=== PATIENT | male | born 2000 | race African-American/Black ===

== ENCOUNTER 2018-07-18 13:53 | Emergency (ER) | payer MEDICAID ==
[~2018-07-18] VITALS: Ht 167.6 cm; Wt 65.0 kg
[2018-07-18] MEDS ORDERED: LIDOCAINE HCL/PF 1% 10 MG/ML 5ML VIAL IJ ONE (18:15)
[2018-07-18] MEDS ORDERED: IBUPROFEN 800MG TABLET PO ONE (18:15)
[2018-07-18 20:10] VITALS: BP 119/78
[2018-07-18] MEDS ORDERED: IBUPROFEN 600MG TABLET PO ONE (20:15)
== END 2018-07-18 20:11 | disposition home or self-care (01) ==
LOC: ER 13:53
DX: S01.511A Laceration without foreign body of lip, initial encounter (principal); W22.8XXA Striking against or struck by other objects, initial encounter; Y93.89 Activity, other specified; Y92.89 Other specified places as the place of occurrence of the external cause; Y99.8 Other external cause status
CPT/HCPCS: 12011; 99283; J3490; Z7610